=== PATIENT | male | born 1955 | race African-American/Black ===

== ENCOUNTER 2019-03-27 10:54 | Inpatient (IN) | payer OTHER ==
[2019-03-27 11:20] VITALS: BMI 24.2
--- NOTE | 2019-03-27 13:08 | HP ---
COWS - Scale Resting Pulse: 0= [place] 80 or Below Sweatin=Flushed/Facial Moisture Restless Observation: 0= Sits Still Pupil Size: 0= Normal to Room Light Bone or Joint Aches: 2= Severe Diffuse Aches Runny Nose/ Eye Tearin= Runny Nose/Eyes GI Upset > 30mins: 2= Nausea/Diarrhea Tremor Observation: 1= Tremor [place], Not Seen Yawning Observation: 2= >3x During Session Anxiety or Irritability: 2=Irritable/Anxious Goose Flesh Skin: 0=Smooth Skin COWS Score: 13 CIWA Score - Admission Criteria [facility] Guidelines: Admission for Medically Managed Detox: Requires at least one of the followin. CIWA greater than 12 2. Seizures within the past 24 hours 3. Delirium tremens within the past 24 hours 4. Hallucinations within the past 24 hours 5. Acute intervention needed for co occurring medical disorder 6. Acute intervention needed for co occurring psychiatric disorder 7. Severe withdrawal that cannot be handled at a lower level of care (continued vomiting, continued diarrhea, abnormal vital signs) requiring intravenous medication and/or fluids 8. Admission ROS [facility] - [facility] Chief Complaint: I am here because I am tired and need help. Allergies/Adverse Reactions: Allergies Allergy/AdvReac Type Severity Reaction Status Date / Time No Known Allergies Allergy Verified 03/27/19 11:13 History of Present Illness: pt is a 63yrold male with a history of heroin and cocaine dependence seeking detox for treatment. this is his first time in detox ever. Exam Limitations: No Limitations - Ebola screening Have you traveled outside of the country in the last 21 days: No Have you had contact with anyone from an Ebola affected area: No Have you been sick,other than usual withdrawal symptoms: No Do you have a fever: No - Review of Systems Constitutional: Chills, Diaphoresis, Loss of Appetite, Changes in sleep EENT: reports: No Symptoms Reported, Nose Congestion, Dental Problems (missing teeth) Respiratory: reports: Cough Cardiac: reports: Lightheadedness GI: reports: Poor Appetite, Poor Fluid Intake : reports: No Symptoms Reported Musculoskeletal: reports: Back Pain, Joint Pain, Muscle Pain, Other (h/o siatica ) Integumentary: reports: Flushing, Sweating Neuro: reports: Headache, Tingling, Tremors Endocrine: reports: Excessive Sweating, Flushing, Intolerance to Cold, Intolerance to Heat Hematology: reports: No Symptoms Reported Psychiatric: reports: Judgement Intact, Mood/Affect Appropiate, Orientated x3, Agitated, Anxious Other Systems: Reviewed and Negative Patient History - Patient Medical History Hx Anemia: No Hx Asthma: No Hx Chronic Obstructive Pulmonary Disease (COPD): No Hx Cancer: No Hx Cardiac Disorders: No Hx Congestive Heart Failure: No Hx Hypertension: Yes (not taking any medication) Hx Hypercholesterolemia: No Hx Pacemaker: No HX Cerebrovascular Accident: No Hx Seizures: Yes (mild stroke >10yrs ago) Hx Dementia: No Hx Diabetes: No Hx Gastrointestinal Disorders: No Hx Liver Disease: No Hx Genitourinary Disorders: No Hx Sexually Transmitted Disorders: No Hx Renal Disease (ESRD): No Hx Thyroid Disease: No Hx Human Immunodeficiency Virus (HIV): No (negative) Hx Hepatitis C: Yes (treated 2002) Hx Depression: No Hx Suicide Attempt: No (pt denies) Hx Bipolar Disorder: No Hx Schizophrenia: No - Patient Surgical History Past Surgical History: No - PPD History Previous Implant?: Yes Documented Results: Negative w/o proof PPD to be Administered?: Yes - Reproductive History Patient is a Female of Child Bearing Age (11 -55 yrs old): No - Smoking Cessation Smoking history: Current every day smoker Have you smoked in the past 12 months: Yes Aproximately how many cigarettes per day: 10 Hx Chewing Tobacco Use: No Initiated information on smoking cessation: Yes 'Breaking Loose' booklet given: 03/27/19 - Substance & Tx. History Hx Alcohol Use: No Hx Substance Use: Yes Substance Use Type: Cocaine, Heroin Hx Substance Use Treatment: No - Substances abused Heroin Substance route: Inhalation Frequency: Daily Amount used: 3-4 bags Age of first use: 41 Date of last use: 03/26/19 Crack Substance route: Smoking Frequency: 1-3 times last 30 days Amount used: 1 bag Age of first use: 21 Date of last use: 03/26/19 Family Disease History - Family Disease History Family Disease History: Diabetes: Mother, CA: Father (prostates [place]) Admission Physical Exam BHS - Vital Signs Vital Signs: Vital Signs - 24 hr 03/27/19 11:14 Temperature 97.8 F Pulse Rate 73 Respiratory 18 Rate Blood Pressure 173/98 H - Physical General Appearance: Yes: Appropriately Dressed, Moderate Distress, Tremorous, Irritable, Sweating, Anxious HEENTM: Yes: Normal Voice, Nasal Congestion Respiratory: Yes: Lungs Clear, Normal Breath Sounds, No Respiratory Distress Neck: Yes: No masses,lesions,Nodules Breast: Yes: Within Normal Limits Cardiology: Yes: Regular Rhythm, Regular Rate, S1, S2 Abdominal: Yes: Normal Bowel Sounds, Non Tender, Soft Genitourinary: Yes: Within Normal Limits Back: Yes: Normal Inspection, Muscle Spasm Musculoskeletal: Yes: Back pain, Joint Stiffness, Muscle Pain, Other (h/o siatica) Extremities: Yes: Normal Capillary Refill, Normal Inspection, Tremors Neurological: Yes: Fully Oriented, Alert, Normal Response Integumentary: Yes: Normal Color, Diaphoresis Lymphatic: Yes: Within Normal Limits - Diagnostic (1) Opioid dependence with withdrawal Current Visit: Yes Status: Chronic (2) Nicotine dependence Current Visit: Yes Status: Chronic Qualifiers: Nicotine product type: cigarettes Substance use status: uncomplicated Qualified Code(s): F17.210 - Nicotine dependence, cigarettes, uncomplicated (3) Hypertension, poor control Current Visit: Yes Status: Chronic (4) Chronic bilateral low back pain with right-sided sciatica Current Visit: Yes Status: Chronic (5) H/O: CVA (cerebrovascular accident) Current Visit: No Status: Chronic Cleared for Admission S - Detox or Rehab [facility] Level of Care: Medically Managed Detox Regimen/Protocol: Methadone Breathalyzer - Breathalyzer Breathalyzer: 0 Urine Drug Screen - Test Device Lot number: [id number] Expiration date: 10/26/20 - Control Is test valid?: Yes - Results Drug screen NEGATIVE: No Urine drug screen results: KELLY-Cocaine, FEN-Fentanyl, MOP-Opiates Inpatient Rehab Admission - Rehab Decision to Admit Inpatient rehab admission?: No
[2019-03-27] MEDS ORDERED: MAGNESIUM HYDROX 2400MG/30ML ORAL SUSPENSION 30 ML CUP PO PRN (13:45)
[2019-03-27] MEDS ORDERED: ONDANSETRON *ODT* 4 MG TABLET SL PRN (13:45)
[2019-03-27] MEDS ORDERED: IBUPROFEN 400 MG TABLET (FP) PO PRN (13:45)
[2019-03-27] MEDS ORDERED: MAGNESIUM CITRATE 300 ML BOTTLE PO PRN (13:45)
[2019-03-27] MEDS ORDERED: MAG HYDROX/AL HYDROX/SIMETH 30 ML UNIT-DOSE CUP PO PRN (13:45)
[2019-03-27] MEDS ORDERED: MENTHOL/PHENOL 1 EACH UD MM PRN (13:45)
[2019-03-27] MEDS ORDERED: NICOTINE POLACRILEX 4 MG GUM BUC PRN (13:45)
[2019-03-27] MEDS ORDERED: DICYCLOMINE HCL 10 MG CAPSULE PO PRN (13:45)
[2019-03-27] MEDS ORDERED: BISMUTH SUBSALICYLATE 262 MG/15 ML BTL PO PRN (13:45)
[2019-03-27] MEDS ORDERED: ACETAMINOPHEN 325 MG TABLET (FP) PO PRN ×2 (13:45)
[2019-03-27] MEDS ORDERED: METHADONE HCL 10 MG TABLET (FOR DETOX USE ONLY) PO ONE ×2 (13:48→23:00)
[2019-03-27] MEDS ORDERED: LIDOCAINE 5% TOPICAL PATCH TP ONE (14:10)
[2019-03-27] MEDS ORDERED: cloNIDine HCL 0.1 MG TABLET PO ONE (14:21)
[2019-03-27] MEDS: hydrOXYzine PAMOATE 25 MG CAPSULE (FP) PO PRN (14:42)
--- NOTE | 2019-03-27 15:39 | EKG ---
Test Reason : Blood Pressure : / mmHG Vent. Rate : 062 BPM Atrial Rate : 062 BPM P-R Int : 144 ms QRS Dur : 094 ms QT Int : 410 ms P-R-T Axes : 081 007 045 degrees QTc Int : 416 ms NORMAL SINUS RHYTHM VOLTAGE CRITERIA FOR LEFT VENTRICULAR HYPERTROPHY ST ELEVATION, CONSIDER EARLY REPOLARIZATION ABNORMAL ECG NO PREVIOUS ECGS AVAILABLE Confirmed by ALBINO WELLS MD ([id number]) on 03/27/2019 3:39:02 PM Referred By: Confirmed By:ALBINO WELLS MD
[2019-03-27 17:11] LABS: HEMATOCRIT 38.5 % (35.4-49); HEMOGLOBIN 12.3 GM/dL (11.7-16.9); MCH 27.3 pg (25.7-33.7); MCHC 32.1 g/dl (32.0-35.9); MEAN CELL VOLUME 85.3 fl (80-96); MEAN PLT VOLUME 10.1 fl (7.5-11.1); PLATELET COUNT 139 K/MM3 (134-434); RBC 4.51 M/mm3 (4.00-5.60); RDW 13.3 % (11.9-15.9); WHITE BLOOD COUNT 4.1 K/mm3 (4.0-10.0)
[2019-03-27 17:13] LABS: ALBUMIN 3.7 g/dl (3.4-5.0); ALK PHOS 77 U/L (45-117); ANION GAP 1 MMOL/L (8-16); BILIRUBIN,TOTAL 0.8 mg/dL (0.2-1); BLOOD UREA NITROGEN 20 mg/dL (7-18); CALCIUM 8.7 mg/dL (8.5-10.1); CHLORIDE 103 mmol/L (98-107); CO2 34 mmol/L (21-32); CREATININE 1.2 mg/dL (0.55-1.3); GLUCOSE,RANDOM 81 mg/dL (74-106); POTASSIUM 3.7 mmol/L (3.5-5.1); SGOT/AST 14 U/L (15-37); SGPT/ALT 29 U/L (13-61); SODIUM 139 mmol/L (136-145); TOT PROT 7.7 g/dl (6.4-8.2)
[2019-03-27] MEDS: cloNIDine HCL 0.1 MG TABLET PO SCH (22:19)
[2019-03-27] MEDS: BACLOFEN 10 MG TABLET (FP) PO PRN (22:19)
[2019-03-27] MEDS: THIAMINE HCL 100 MG TABLET (FP) PO SCH (22:20)
[2019-03-27] MEDS: LIDOCAINE PATCH REMOVAL MC SCH (22:20)
[2019-03-28] MEDS ORDERED: cloNIDine HCL 0.1 MG TABLET PO ONE (06:41)
[2019-03-28] MEDS ORDERED: METHADONE HCL 10 MG TABLET (FOR DETOX USE ONLY) PO ONE (10:00)
[2019-03-28] MEDS: cloNIDine HCL 0.1 MG TABLET PO SCH ×2 (10:16→22:03)
[2019-03-28] MEDS: PRENATAL VITAMINS W/ FOLIC ACID TABLET (FP) PO SCH (10:16)
[2019-03-28] MEDS: hydrOXYzine PAMOATE 25 MG CAPSULE (FP) PO PRN ×2 (10:16→22:02)
[2019-03-28] MEDS: NICOTINE 21 MG/24 HOURS TOPICAL PATCH TD SCH (10:17)
[2019-03-28] MEDS: LIDOCAINE 5% TOPICAL PATCH TP SCH (10:18)
--- NOTE | 2019-03-28 11:10 | PN ---
BHS COWS - Scale Resting Pulse: 0= [place] 80 or Below Sweatin= Chills/Flushing Restless Observation: 1= Difficult to Sit Still Pupil Size: 1= Pupils >than Normal Bone or Joint Aches: 1= Mild Discomfort Runny Nose/ Eye Tearin= Nasal Congestion GI Upset > 30mins: 1= Stomach Cramp Tremor Observation of Outstretched Hands: 1= Tremor [place], Not Seen Yawning Observation: 1= 1-2x During Session Anxiety or Irritability: 2=Irritable/Anxious Goose Flesh Skin: 0=Smooth Skin COWS Score: 10 S Progress Note (SOAP) Subjective: resting on bed low energy preferring resting today Objective: 03/28/19 11:11 Vital Signs Temperature 96.5 F L 03/28/19 09:17 Pulse Rate 48 L 03/28/19 09:17 Respiratory Rate 18 03/28/19 09:17 Blood Pressure 112/68 03/28/19 09:17 O2 Sat by Pulse Oximetry (%) Laboratory Last Values WBC 4.1 K/mm3 (4.0-10.0) 03/27/19 13:00 RBC 4.51 M/mm3 (4.00-5.60) 03/27/19 13:00 Hgb 12.3 GM/dL (11.7-16.9) 03/27/19 13:00 Hct 38.5 % (35.4-49) 03/27/19 13:00 MCV 85.3 fl (80-96) 03/27/19 13:00 MCH 27.3 pg (25.7-33.7) 03/27/19 13:00 MCHC 32.1 g/dl (32.0-35.9) 03/27/19 13:00 RDW 13.3 % (11.9-15.9) 03/27/19 13:00 Plt Count 139 K/MM3 (134-434) 03/27/19 13:00 MPV 10.1 fl (7.5-11.1) 03/27/19 13:00 Sodium 139 mmol/L (136-145) 03/27/19 13:00 Potassium 3.7 mmol/L (3.5-5.1) 03/27/19 13:00 Chloride 103 mmol/L (98-107) 03/27/19 13:00 Carbon Dioxide 34 mmol/L (21-32) H 03/27/19 13:00 Anion Gap 1 MMOL/L (8-16) L 03/27/19 13:00 BUN 20 mg/dL (7-18) H 03/27/19 13:00 Creatinine 1.2 mg/dL (0.55-1.3) 03/27/19 13:00 Creat Clearance w eGFR 61.35 (>60) 03/27/19 13:00 Random Glucose 81 mg/dL (74-106) 03/27/19 13:00 Calcium 8.7 mg/dL (8.5-10.1) 03/27/19 13:00 Total Bilirubin 0.8 mg/dL (0.2-1) 03/27/19 13:00 AST 14 U/L (15-37) L 03/27/19 13:00 ALT 29 U/L (13-61) 03/27/19 13:00 Alkaline Phosphatase 77 U/L (45-117) 03/27/19 13:00 Total Protein 7.7 g/dl (6.4-8.2) 03/27/19 13:00 Albumin 3.7 g/dl (3.4-5.0) 03/27/19 13:00 RPR Titer Nonreactive (NONREACTIVE) 03/27/19 13:00 lab noted Assessment: 03/28/19 11:11 opiate withdrawal sx Plan: continue detox
[2019-03-28] MEDS: BACLOFEN 10 MG TABLET (FP) PO PRN (22:02)
[2019-03-28] MEDS: MELATONIN 5 MG TABLETS PO PRN (22:03)
[2019-03-28] MEDS: THIAMINE HCL 100 MG TABLET (FP) PO SCH (22:03)
[2019-03-28] MEDS: LIDOCAINE PATCH REMOVAL MC SCH (22:04)
[2019-03-29] MEDS ORDERED: METHADONE HCL 10 MG TABLET (FOR DETOX USE ONLY) PO ONE (10:00)
[2019-03-29] MEDS: hydrOXYzine PAMOATE 25 MG CAPSULE (FP) PO PRN ×2 (10:05→22:09)
[2019-03-29] MEDS: LIDOCAINE 5% TOPICAL PATCH TP SCH (10:05)
[2019-03-29] MEDS: cloNIDine HCL 0.1 MG TABLET PO SCH (10:05)
[2019-03-29] MEDS: BACLOFEN 10 MG TABLET (FP) PO PRN ×2 (10:05→22:09)
[2019-03-29] MEDS: PRENATAL VITAMINS W/ FOLIC ACID TABLET (FP) PO SCH (10:05)
[2019-03-29] MEDS: NICOTINE 21 MG/24 HOURS TOPICAL PATCH TD SCH (10:06)
--- NOTE | 2019-03-29 15:10 | PN ---
BHS COWS - Scale Resting Pulse: 0= [place] 80 or Below Sweatin= No chills or Flushing Restless Observation: 0= Sits Still Pupil Size: 1= Pupils >than Normal Bone or Joint Aches: 1= Mild Discomfort Runny Nose/ Eye Tearin= None GI Upset > 30mins: 0= None Tremor Observation of Outstretched Hands: 0= None Yawning Observation: 0= None Anxiety or Irritability: 0= None Goose Flesh Skin: 0=Smooth Skin COWS Score: 2 BHS Progress Note (SOAP) Subjective: day #3 of alcohol detox protocol, pt states he is doing well on protocol. Says he gets dizziness when he takes the BP med clonidine- says he does not take this usually on the outside O: Vital Signs - 24 hr 03/28/19 03/29/19 03/29/19 17:10 00:30 03:30 Temperature 96.8 F L Pulse Rate 49 L Respiratory 16 18 18 Rate Blood Pressure 128/71 03/29/19 03/29/19 03/29/19 06:39 09:21 13:40 Temperature 97.6 F 97.4 F L 96.1 F L Pulse Rate 52 L 53 L 54 L Respiratory 18 18 18 Rate Blood Pressure 142/85 158/81 124/59 L Laboratory Tests 03/27/19 03/27/19 03/27/19 13:00 13:00 13:00 WBC 4.1 RBC 4.51 Hgb 12.3 Hct 38.5 MCV 85.3 MCH 27.3 MCHC 32.1 RDW 13.3 Plt Count 139 MPV 10.1 Sodium 139 Potassium 3.7 Chloride 103 Carbon Dioxide 34 H Anion Gap 1 L BUN 20 H Creatinine 1.2 Creat Clearance w eGFR 61.35 Random Glucose 81 Calcium 8.7 Total Bilirubin 0.8 AST 14 L ALT 29 Alkaline Phosphatase 77 Total Protein 7.7 Albumin 3.7 RPR Titer Nonreactive low anion gap a/p: continue methadone detox protocol, will d/c clonidine for c/o dizziness and unsteadiness
[2019-03-29] MEDS: MELATONIN 5 MG TABLETS PO PRN (22:09)
[2019-03-29] MEDS: LIDOCAINE PATCH REMOVAL MC SCH (22:09)
[2019-03-29] MEDS: THIAMINE HCL 100 MG TABLET (FP) PO SCH (22:09)
[2019-03-30] MEDS ORDERED: METHADONE HCL 10 MG TABLET (FOR DETOX USE ONLY) PO ONE (10:00)
[2019-03-30] MEDS: PRENATAL VITAMINS W/ FOLIC ACID TABLET (FP) PO SCH (10:20)
[2019-03-30] MEDS: LIDOCAINE 5% TOPICAL PATCH TP SCH (10:20)
[2019-03-30] MEDS: NICOTINE 21 MG/24 HOURS TOPICAL PATCH TD SCH (10:20)
[2019-03-30] MEDS ORDERED: cloNIDine HCL 0.1 MG TABLET PO PRN (10:47)
--- NOTE | 2019-03-30 13:05 | PN ---
S CIWA - CIWA Score Nausea/Vomitin-No Nausea/No Vomiting Muscle Tremors: 4-Moderate,w/Arms Extend Anxiety: 4-Mod. Anxious/Guarded Agitation: 3 Paroxysmal Sweats: 2 Orientation: 0-Oriented Tacttile Disturbances: 0-None Auditory Disturbances: 0-None Visual Disturbances: 0-None Headache: 0-None Present CIWA-Ar Total Score: 13 BHS Progress Note (SOAP) Subjective: PT C/O SWEATS, ANXIETY,TREMORS AND DIZZINESS. Objective: 03/30/19 13:22 Vital Signs - 24 hr 03/29/19 03/29/19 03/29/19 13:40 17:45 22:01 Temperature 96.1 F L 98.0 F 97.8 F Pulse Rate 54 L 57 L 54 L Respiratory 18 16 18 Rate Blood Pressure 124/59 L 139/82 157/78 03/30/19 03/30/19 03/30/19 00:30 03:30 06:16 Temperature 96.5 F L Pulse Rate 57 L Respiratory 18 18 18 Rate Blood Pressure 150/87 03/30/19 03/30/19 03/30/19 06:30 09:22 13:19 Temperature 96.9 F L 97.7 F Pulse Rate 55 L 60 Respiratory 18 18 18 Rate Blood Pressure 152/85 162/87 Laboratory Tests 03/27/19 03/27/19 03/27/19 13:00 13:00 13:00 WBC 4.1 RBC 4.51 Hgb 12.3 Hct 38.5 MCV 85.3 MCH 27.3 MCHC 32.1 RDW 13.3 Plt Count 139 MPV 10.1 Sodium 139 Potassium 3.7 Chloride 103 Carbon Dioxide 34 H Anion Gap 1 L BUN 20 H Creatinine 1.2 Creat Clearance w eGFR 61.35 Random Glucose 81 Calcium 8.7 Total Bilirubin 0.8 AST 14 L ALT 29 Alkaline Phosphatase 77 Total Protein 7.7 Albumin 3.7 RPR Titer Nonreactive Assessment: 03/30/19 13:22 WITHDRAWAL SX Plan: CONTINUE DETOX CLONIDINE 0.1 MG PO BID PRN FOR ELEVATED BP DUE TO WITHDRAWAL SX.
[2019-03-30] MEDS: THIAMINE HCL 100 MG TABLET (FP) PO SCH (22:15)
[2019-03-30] MEDS: LIDOCAINE PATCH REMOVAL MC SCH (22:15)
[2019-03-30] MEDS: hydrOXYzine PAMOATE 25 MG CAPSULE (FP) PO PRN (22:16)
[2019-03-30] MEDS: MELATONIN 5 MG TABLETS PO PRN (22:17)
[2019-03-31] MEDS ORDERED: METHADONE HCL 5 MG TABLET (FOR DETOX USE ONLY) PO ONE (06:00)
[2019-03-31 09:28] VITALS: BP 154/83; PULSE 57; TEMP 97.1
--- NOTE | 2019-03-31 15:44 | DS ---
[facility] Detox Discharge Summary Admission Date: 03/27/19 Discharge Date: 03/31/19 - History Present History: Opioid Dependence Additional Comments: 63 years old male admitted on on 03/27/19 for opiate withdrawal stabilization denies history of hypertension denies taking antihypertensant medication strong recommend the patient to follow up with [facility] for bp monitoring and possible pharmacotherapy for bp elevation discuss riaks of bp elevation Pertinent Past History: bring in medication list and lab report to follow up appointment - Physical Exam Results Vital Signs: Vital Signs Temperature 97.1 F L 03/31/19 09:26 Pulse Rate 57 L 03/31/19 09:26 Respiratory Rate 18 03/31/19 09:26 Blood Pressure 154/83 03/31/19 09:26 O2 Sat by Pulse Oximetry (%) Pertinent Admission Physical Exam Findings: opiate withdrawal sx Laboratory Last Values WBC 4.1 K/mm3 (4.0-10.0) 03/27/19 13:00 RBC 4.51 M/mm3 (4.00-5.60) 03/27/19 13:00 Hgb 12.3 GM/dL (11.7-16.9) 03/27/19 13:00 Hct 38.5 % (35.4-49) 03/27/19 13:00 MCV 85.3 fl (80-96) 03/27/19 13:00 MCH 27.3 pg (25.7-33.7) 03/27/19 13:00 MCHC 32.1 g/dl (32.0-35.9) 03/27/19 13:00 RDW 13.3 % (11.9-15.9) 03/27/19 13:00 Plt Count 139 K/MM3 (134-434) 03/27/19 13:00 MPV 10.1 fl (7.5-11.1) 03/27/19 13:00 Sodium 139 mmol/L (136-145) 03/27/19 13:00 Potassium 3.7 mmol/L (3.5-5.1) 03/27/19 13:00 Chloride 103 mmol/L (98-107) 03/27/19 13:00 Carbon Dioxide 34 mmol/L (21-32) H 03/27/19 13:00 Anion Gap 1 MMOL/L (8-16) L 03/27/19 13:00 BUN 20 mg/dL (7-18) H 03/27/19 13:00 Creatinine 1.2 mg/dL (0.55-1.3) 03/27/19 13:00 Creat Clearance w eGFR 61.35 (>60) 03/27/19 13:00 Random Glucose 81 mg/dL (74-106) 03/27/19 13:00 Calcium 8.7 mg/dL (8.5-10.1) 03/27/19 13:00 Total Bilirubin 0.8 mg/dL (0.2-1) 03/27/19 13:00 AST 14 U/L (15-37) L 03/27/19 13:00 ALT 29 U/L (13-61) 03/27/19 13:00 Alkaline Phosphatase 77 U/L (45-117) 03/27/19 13:00 Total Protein 7.7 g/dl (6.4-8.2) 03/27/19 13:00 Albumin 3.7 g/dl (3.4-5.0) 03/27/19 13:00 RPR Titer Nonreactive (NONREACTIVE) 03/27/19 13:00 lab noted - Treatment Hospital Course: Detox Protocol Followed, Detoxed Safely, Responded well, Discharged Condition Good, Rehab Referral Accepted Patient has Accepted a Rehab Referral to: medication assisted maintenance treatment program - Medication Discharge Medications: Ambulatory Orders NK [No Known Home Medication] 03/27/19 - Diagnosis (1) Hypertension, poor control Status: Chronic (2) Nicotine dependence Status: Acute Qualifiers: Nicotine product type: cigarettes Substance use status: in withdrawal Qualified Code(s): F17.213 - Nicotine dependence, cigarettes, with withdrawal (3) Opioid dependence with withdrawal Status: Acute - AMA Did Patient Leave Against Medical Advice: No
== END 2019-03-31 10:04 | disposition home or self-care (01) | DRG 773 ==
LOC: YASAS 10:54 → Y3N 13:48
PROVIDERS: ADMIT Surgery; ATTEND Surgery
PROC: HZ2ZZZZ Detoxification Services for Substance Abuse Treatment (ICD-10-PCS; principal; 2019-03-27)
DX: F11.23 Opioid dependence with withdrawal (principal); F14.10 Cocaine abuse, uncomplicated; F17.213 Nicotine dependence, cigarettes, with withdrawal; I10 Essential (primary) hypertension; M54.41 Lumbago with sciatica, right side; Z86.19 Personal history of other infectious and parasitic diseases; Z86.73 Personal history of transient ischemic attack (TIA), and cerebral infarction without residual deficits
CPT/HCPCS: 36415; 80053; 85027; 86593; 93005; 93010; J0475; J0735